=== PATIENT | male | born 1990 | race Caucasian/White ===

== ENCOUNTER 2019-01-15 23:18 | Emergency (ER) | payer SELFPAY ==
[~2019-01-15] VITALS: Ht 185.4 cm; Wt 77.1 kg
[2019-01-15 23:26] VITALS: BP 134/69
[2019-01-16] MEDS ORDERED: BACITRACIN TOP OINT 1 UD PKG TOP ONE (01:15)
== END 2019-01-16 01:58 | disposition home or self-care (01) ==
LOC: ER 23:22
DX: B35.3 Tinea pedis (principal); F17.210 Nicotine dependence, cigarettes, uncomplicated; F12.10 Cannabis abuse, uncomplicated; F15.10 Other stimulant abuse, uncomplicated; Z59.0 Homelessness